=== PATIENT | female | born 1955 | race Caucasian/White ===

== ENCOUNTER 2017-12-24 01:00 | Day surgery (SDC) | payer OTHER ==
[~2017-12-24] VITALS: Ht 171.4 cm; Wt 64.4 kg
[~2017-12-24 01:00] MED LIST: ALEN70TA2 PO; CA C1TAB93 PO; CALC-734 PO; CALC600T63 PO; GOLYTE PO; SULF-198 PO
[2017-12-24 09:10] VITALS: BP 104/81
[2017-12-24] MEDS ORDERED: NORMOSOL R SOLN(*) 1000 ML BAG 1,000 ML IV PRN (09:25)
[2017-12-24] MEDS ORDERED: LIDOCAINE/SOD BICARB 8.4% SYR ID ONE (09:25)
[2017-12-24] MEDS ORDERED: MIDAZOLAM 2 MG/2 ML VIAL IVP PRN (09:25)
[2017-12-24 11:45] VITALS: BP 117/67
--- NOTE | 2017-12-24 11:52 | Short(Outpt) Discharge Summary ---
Discharge Summary Reason for Hosp/Final Diag: (1) Colon cancer screening Status: Chronic Hospital Course & Plan: Colonoscopy completed without problems. Departure Discharge to: Home, Self Care Discharge Instructions Home Meds Active Scripts Peg/Electrolytes (GOLYTELY SOLUTION) 4,000 Ml Soln, 1 GAL PO ONCE, #1 GAL 0 Refills Prov:IVAN GREEN MD 12/09/17 Alendronate Sodium (ALENDRONATE SODIUM) 70 Mg Tablet, 70 MG PO QWEEK, #12 TAB 4 Refills Prov:JILLIAN GILL HOG SCALDER-BC, ONC 11/15/15 Diet: Regular Activity: As Tolerated Special Instructions: Your colonoscopy was completed without probems. Your prep was fair. There was some stool remaining in your transverse colon. In the parts of your colon that I could clear inspect which is about 85% of your colon, there were no polyps or other abnormalities. In the 15% of your colon that was obscured by stool there may be a polyp or two that are covered. I recommend that we repeat your colonoscopy within the next 2-3 years so I can be completely certain that there are no polyps in your colon and if there are I can remove them. We may have to start a laxative a couple of days before the prep to better ensure an excellent prep before your next colonoscopy. IVAN GREEN MD Dec 24, 2017 11:52
[2017-12-24] MEDS ORDERED: LIDOCAINE MPF 1% 5 ML VIAL ONE (12:00)
[2017-12-24] MEDS ORDERED: PROPOFOL EMUL(*) 10MG/ML 20 ML 20 ML ONE (12:00)
[2017-12-24 12:05] VITALS: BP 95/68
[2017-12-24 12:29] VITALS: BP 101/78
[2017-12-24 12:49] VITALS: BP 105/82
[2017-12-24 12:51] VITALS: BP 96/80
== END 2017-12-24 13:14 | disposition home or self-care (01) ==
LOC: OR 01:00
PROVIDERS: ATTEND Surgery
DX: Z12.11 Encounter for screening for malignant neoplasm of colon (principal)
CPT/HCPCS: 00812; 45378; J2001; J2704

== ENCOUNTER → 2018-01-01 | Outpatient (CLI) | payer OTHER ==
[~2018-01-01] MED LIST changes: +CIPR-344 PO
--- NOTE | 2018-01-01 09:39 | Oncology Note ---
Patient calls today to report that she's having dysuria post recent colonoscopy. Patient has been drinking extra fluids and symptoms have not resolved. UA was done today and reports a WBC of 9. I will go ahead and treat patient with Cipro 500 mg twice a day 3 days. ACCOUNTS PAYABLE ASSISTANT will be completed. Patient is notified. If symptoms do not resolve patient is to contact the clinic for further evaluation. JILLIAN GILL HUMANE AGENT-BC, ONC Jan 01, 2018 09:39
== END ==
LOC: SPU 08:19
PROVIDERS: ATTEND Nurse Practitioner Family
DX: R30.0 Dysuria (principal)
CPT/HCPCS: 81001; 87088

== ENCOUNTER → 2018-12-18 | Outpatient (REF) ==
[~2018-12-18] MED LIST changes: -ALEN70TA2 PO; +ALEN70TA46 PO; +CHOL200025 PO; +LACT1CAP6 PO; +PNEU0.5D3 IM
[2018-12-18 09:04] LABS: LDL CHOLESTEROL 123 mg/dl
== END ==
DX: Z02.9 Encounter for administrative examinations, unspecified (principal)

== ENCOUNTER 2018-12-26 18:34 | Emergency (ER) | payer OTHER ==
[2018-12-26 18:58] VITALS: BP 96/71
--- NOTE | 2018-12-26 18:59 | ER Report ---
History and Physical Time Seen By MD: 18:55 HPI/ROS CHIEF COMPLAINT: Foreign body in the eye HISTORY OF PRESENT ILLNESS: This is a 63-year-old female who presents to the emergency department for foreign body in her right eye. Patient states that early this afternoon she was working with some wood, had her CT goggles on, went outside to brush her self off took the gloves off and a piece of sawdust blew up into her right eye. Patient states that she irrigated her eye several times, ultimately decided to come in for further evaluation of the eye was very irritated. Upon arrival patient states that the pain has subsided however she still wanted an evaluation. No visual changes. No nausea or vomiting. No other complaints. REVIEW OF SYSTEMS: Respiratory: No cough, no dyspnea. Eyes: As above. Cardiovascular: No chest pain, no palpitations. Gastrointestinal: No vomiting, no abdominal pain. Musculoskeletal: No back pain. Allergies: Coded Allergies: No Known Drug Allergies (Unverified , 11/13/17) Home Meds Active Scripts Alendronate Sodium (ALENDRONATE SODIUM) 70 Mg Tablet, 70 MG PO Q2WK, #12 TAB 4 Refills Prov:LOUISE FAULKNER APRN SPECIALTY MOLDER-C 03/13/18 Reported Medications Lactobacillus Combination No.4 (PROBIOTIC) 1 Each Capsule, 1 EACH PO QDAY, CAPSULE 03/13/18 Cholecalciferol (Vitamin D3) (VITAMIN D3) 2,000 Unit Capsule, 1000 UNIT PO DAILY, CAPSULE 03/13/18 Past Medical/Surgical History The patient has a past medical and surgical history of colonoscopy, rib fractures, wears glasses, tinnitus, hysterectomy, breast cancer, lymph node biopsy, splenectomy, hysterectomy, thumb surgery, tonsillectomy. Reviewed Nurses Notes: Yes Smoking Status: Never Smoker Constitutional Vital Sign - Last 24 Hours 12/26/18 18:58 Temp 98.0 Pulse 69 Resp 17 B/P (MAP) 96/71 Pulse Ox 96 O2 Delivery Room Air Physical Exam General Appearance: The patient is alert, has no immediate need for airway protection and no current signs of toxicity. Eyes: Pupils equal and round no injection. Corneal abrasion to the anterior aspect of the right globe, on Rosa lamp exam. Respiratory: Chest is non tender, lungs are clear to auscultation. Cardiac: regular rate and rhythm. Gastrointestinal: Abdomen is soft and non tender, no masses, bowel sounds normal. Musculoskeletal: Neck: Neck is supple and non tender. Extremities have full range of motion and are non tender. Skin: No rashes or lesions. DIFFERENTIAL DIAGNOSIS: After history and physical exam differential diagnosis was considered for corneal abrasion, rupture of the globe, foreign body, ulceration of the cornea. Medical Decision Making ED Course/Re-evaluation ED Course Patient was admitted to room. A history and physical were obtained. Differential diagnoses were considered. Visual acuity is 20/30, OD, both eyes, OS. Patient states that she feels the debris has been flushed out I did however numb the eye and a fluorescein exam with the Rosa lamp, was positive for a corneal abrasion on the inferior aspect of the globe. Patient was given tobramycin drops instructed to use these for the next 5 days, return to ER for any other concerns or worsening symptoms, follow-up with ophthalmology as needed, patient was in agreement with this plan of care and discharged home. Decision to Disposition Date: Dec 26, 2018 Decision to Disposition Time: 19:23 Depart Departure Latest Vital Signs Vital Signs Date Time Temp Pulse Resp B/P (MAP) Pulse Ox O2 Delivery O2 Flow Rate FiO2 12/26/18 18:58 98.0 69 17 96/71 96 Room Air Impression: Primary Impression: Injury of conjunctiva and corneal abrasion of right eye w/o FB Condition: Improved Disposition: HOME OR SELF-CARE Patient Instructions: Corneal Abrasion (ED) Additional Instructions: Please use the tobramycin 2 drops to the right eye 4 times a day for 5 days. Drink plenty of water. Get plenty of rest. If you have any recurrent concerns please return to the emergency department. Follow-up with your urgent care as scheduled or if no improvement in the next 5 days. Follow-up with your primary care provider as scheduled. Problem Qualifiers Primary Impression: Injury of conjunctiva and corneal abrasion of right eye w/o FB Encounter type: initial encounter Qualified Codes: S05.01XA - Injury of conjunctiva and corneal abrasion without foreign body, right eye, initial encounter BILL MISTRY-BC Dec 26, 2018 18:59
[2018-12-26] MEDS ORDERED: PROPARACAI/FLUORESCEIN 5 ML OP DROPS OU ONE (19:05)
[2018-12-26] MEDS ORDERED: TOBRAMYCIN 0.3% OP SOLN 5 ML OD ONE (19:25)
== END 2018-12-26 19:45 | disposition home or self-care (01) ==
LOC: ER 18:40
DX: S05.01XA Injury of conjunctiva and corneal abrasion without foreign body, right eye, initial encounter (principal)
CPT/HCPCS: 99282

== ENCOUNTER 2019-01-22 08:15 | Outpatient (RCR) | payer OTHER ==
--- NOTE | 2018-12-18 12:18 | PT INITIAL EVALUATION ---
MEDICAL DIAGNOSIS: Lymphedema of Upper Arm TREATMENT DIAGNOSIS: Lymphedema of Right Arm, Cervical Dysfunction, Axillary Cording DATE OF ONSET: 11/27/18 SUBJECTIVE: More is a 63 year old female presenting to physical therapy following recent onset of swelling of the R arm as well as shooting pain down the R arm and mid/upper back and shoulder. More reports that she was working on moving some large logs 3 weeks prior and the next day had sharp pain going down the back of the R arm and onset of swelling. Pt has a history of breast cancer 20 years prior with R axillary lymph node removal and has onset of edema in the R arm before which typically goes away on it's own. Pt reports that this time however there was also pain and the swelling and pain stuck around for the last couple weeks. The swelling has only slightly reduced despite pt wearing her compression sleeve in the evenings and overnight. Pain is typically just "annoying" and "tender" but occasionally sharp with numbness and tingling in the first two digits. Pt reports that she has always had tightness with overhead reaching since her surgery but recently it is a little worse. Additionally the pain goes all the way up to her neck and back. Pt reports no headaches at this time. 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 ROM: Cervical ROM: ext: R side pain with minimal restrictions and L rotation at end range, flexion: R side tightness with full motion, L SB: R side tightness with minimal restrictions, R SB: full, L rotation: R tight with minimal restrictions, R rotation: full Thoracic ROM: full in all motions with stretch on L rotation. Palpation: Pt is tender to palpation from occiput to T6 on the R side only extending out to AC joint with "ache" down the back of the arm. Sensation: Pt has occasional numbness and tingling in first two digits Special Tests: Pitting (-), Stemmer's Sign (-) Balance: Circumferential Measures in cm (R,L): 1st digit: 6.3, 5.8, 2nd: 5.9, 5.8, 3rd: 5.7, 5.4, 4th: 5.4, 5.1, 5th: 4.8, 4.8, dorsum: 18.4, 17.1, wrist: 15.8, 14.5, hand diagonal: 21.5, 20.8, forearm: 26, 22.5, elbow: 25.22, 10cm above elbow: 24.9, 29.2. Other Objective Findings: Quick DASH Disability: 18% ASSESSMENT: More presents with signs and symptoms constant with stage 1 lymphedema of the R UE secondary to lymph node removal as well as cervical dysfunction with radiating pain down the R arm. Physical therapy is indicated to address the above listed deficits to improve pt function with ADL's. Short Term Goals In 2 weeks pt will reduce R forearm circumference to 24 cm for improved function with ADL's. In 2 weeks pt will be independent with self massage for MLD for maintenance of lymphedema for improved function. In 4 weeks pt will improve cervical ROM to full without pain for improved function with ADL's and recreational activities. Patient's Goals Decrease R arm swelling and pain shooting down arm and spine. PLAN: Patient to be seen for Manual Therapy/STM/MET Strengthening/condition Ice/Heat Range of Motion Spinal Stabilization Ultrasound Stretching Iontophoresis Neuromuscular Re-ed Closed Chain Program Electrical Stim Posture/Body mechanics Biofeedback Home Exercise Program Mech./Manual Traction Therapeutic Activities 5x/Week for 4 Weeks If you have any questions, comments, or concerns about this report or plan, please contact me at . Thank you, Laura Antonio, PT, DPT, CLT MTDD
--- NOTE | 2019-01-14 07:32 | PT PLAN OF CARE ---
Physician: KRYSTA Shepherd Patient is being seen: 3x/Week Therapist: Laura Atnonio, PT, DPT, CLT Medical Diagnosis: Lymphedema of Upper Arm Treatment Diagnosis: Lymphedema of Right Arm, Cervical Dysfunction, Axillary Cording Date of Onset: 11/27/18 Date of Initial Evaluation: 12/18/18 Date patient was last seen: 01/12/19 Number of treatments: 14 Number of cancellations/No shows: 0 INTERVENTIONS: Manual Therapy/STM/MET Strengthening/condition Ice/Heat Range of Motion Spinal Stabilization Ultrasound Stretching Iontophoresis Neuromuscular Re-ed Closed Chain Program Electrical Stim Posture/Body mechanics Biofeedback Home Exercise Program Mech./Manual Traction Therapeutic Activities GOALS: In 2 weeks pt will reduce R forearm circumference to 24 cm or less for improved function with ADL's. In Progress In 2 weeks pt will be independent with self massage for MLD for maintenance of lymphedema for improved function. In Progress In 4 weeks pt will improve cervical ROM to full without pain for improved function with ADL's and recreational activities. MET PATIENT'S GOAL: Decrease R arm swelling and pain shooting down arm and spine. Status of Patient's Goals: 1/3 MET, 2/3 In Progress Patient Compliance: Good Prognosis: Good Reasons for continuing therapy: More shows good progress with circumferential reductions following resolution of cervical dysfunction and radiating pain. Secondary to pt preference of frequency of schedule and poor use of daily compression, gains are slow but are continually occurring. At this time pt shows near full reductions in the fingers and wrist region with lingering edema collecting still around the elbow and posterior upper arm. Further PT is indicated to continue reductions in circumferential volume as well as maintain cervical function with ADL's. Posture: Slight forward head with increased thoracic kyphosis. ROM: Cervical ROM: full in all motions without pain. Special Tests: Pitting (-), Stemmer's Sign (-) Circumferential Measures in cm (R,L): EVAL: 1st digit: 6.3, 5.8, 2nd: 5.9, 5.8, 3rd: 5.7, 5.4, 4th: 5.4, 5.1, 5th: 4.8, 4.8, dorsum: 18.4, 17.1, wrist: 15.8, 14.5, hand diagonal: 21.5, 20.8, forearm: 26, 22.5, elbow: 25.22, 10cm above elbow: 24.9, 29.2. 01/13/19: 1st digit: 6.5, 5.8, 2nd: 6.2, 5.8, 3rd: 5.8, 5.4, 4th: 5.3, 5.1, 5th: 4.9, 4.8, dorsum: 18.4, 17.1, wrist: 15.5, 14.5, hand diagonal: 21.5, 20.8, forearm: 24.1, 22.5, elbow: 24.7, 22, 10cm above elbow: 30.5, 24.9. If you have any questions or concerns, please feel free to contact me at [phone]. Thank you, Laura Antonio, PT, DPT, CLT GUS
--- NOTE | 2019-01-22 10:10 | PT PLAN OF CARE ---
Physician: KRYSTA Shepherd Patient is being seen: 3x/Week Therapist: Laura Antonio, PT, DPT, CLT Medical Diagnosis: Lymphedema of Upper Arm Treatment Diagnosis: Lymphedema of Right Arm, Cervical Dysfunction, Axillary Cording Date of Onset: 11/27/18 Date of Initial Evaluation: 12/18/18 Date patient was last seen: 01/22/19 Number of treatments: 20 Number of cancellations/No shows: 0 INTERVENTIONS: Manual Therapy/STM/MET Strengthening/condition Ice/Heat Range of Motion Spinal Stabilization Ultrasound Stretching Iontophoresis Neuromuscular Re-ed Closed Chain Program Electrical Stim Posture/Body mechanics Biofeedback Home Exercise Program Mech./Manual Traction Therapeutic Activities GOALS: In 2 weeks pt will reduce R forearm circumference to 24 cm or less for improved function with ADL's. MET In 2 weeks pt will be independent with self massage for MLD for maintenance of lymphedema for improved function. MET In 4 weeks pt will improve cervical ROM to full without pain for improved function with ADL's and recreational activities. MET PATIENT'S GOAL: Decrease R arm swelling and pain shooting down arm and spine. Status of Patient's Goals: 3/3 MET, Patient Compliance: Good Prognosis: Good Reasons for discharge from therapy: More is to discharge from PT at this time secondary to completion of 3/3 functional goals. At this time More shows good compliance with compression garment use and self wrapping at night at home. More is wearing her compression sleeves during most of the day and has no longer any visible protein accumulation in the arm or skin irritation. Upon discharge, pt is to continue with self management and seek further PT if any return in edema is present. Posture: Slight forward head with increased thoracic kyphosis. ROM: Cervical ROM: full in all motions without pain. Special Tests: Pitting (-), Stemmer's Sign (-) Circumferential Measures in cm (R,L): EVAL: 1st digit: 6.3, 5.8, 2nd: 5.9, 5.8, 3rd: 5.7, 5.4, 4th: 5.4, 5.1, 5th: 4.8, 4.8, dorsum: 18.4, 17.1, wrist: 15.8, 14.5, hand diagonal: 21.5, 20.8, forearm: 26, 22.5, elbow: 25.22, 10cm above elbow: 24.9, 29.2. 01/13/19: 1st digit: 6.5, 5.8, 2nd: 6.2, 5.8, 3rd: 5.8, 5.4, 4th: 5.3, 5.1, 5th: 4.9, 4.8, dorsum: 18.4, 17.1, wrist: 15.5, 14.5, hand diagonal: 21.5, 20.8, forearm: 24.1, 22.5, elbow: 24.7, 22, 10cm above elbow: 30.5, 24.9. 01/22/19: 1st digit: 6.3, 5.8, 2nd: 6.1, 5.8, 3rd: 5.8, 5.4, 4th: 5.4, 5.1, 5th: 4.9, 4.8, dorsum: 18.3, 17.1, wrist: 15.4, 14.5, hand diagonal: 21.1, 20.8, forearm: 24, 22.5, elbow: 23.7, 22, 10cm above elbow: 29.4, 24.9. Outcome Measure: QuickDASH: 0% Impairment If you have any questions or concerns, please feel free to contact me at [phone]. Thank you, Laura Antonio, PT, DPT, CLT MTDD
== END 2019-01-22 14:25 | disposition home or self-care (01) ==
LOC: PT 08:15
PROVIDERS: ATTEND Nurse Practitioner Family
DX: I89.0 Lymphedema, not elsewhere classified (principal); M99.01 Segmental and somatic dysfunction of cervical region; I89.9 Noninfective disorder of lymphatic vessels and lymph nodes, unspecified; Z85.3 Personal history of malignant neoplasm of breast
CPT/HCPCS: 97162